=== PATIENT | male | born 1990 | race Caucasian/White ===

== ENCOUNTER 2020-10-20 22:22 | Emergency (ER) | payer OTHER ==
[~2020-10-20] VITALS: Ht 185.4 cm; Wt 90.9 kg
--- NOTE | 2020-10-20 22:30 | PHYS DOC ---
Past History Smoking: Cigarettes Alcohol Use: Rarely Drug Use: Other General Adult HPI: HPI: ".. I don't know.. what happened...I did a pinch of K -2.... I guess .. I went out...".. " I am fine now...." Patient is a 30 year old male [facility] prisoner who presents with above hx and complaints of syncope after doing a "pinch of K 2". Patient has states he has completed a 5-year federal sentence for drug sales. Patient states she has a 2- month stay at [facility], before completing his symptoms. Patient denies any previous cardiac history. Patient denies any previous history of seizures. Patient does have a history of polysubstance abuse before going to [facility]. Patient states he is not particularly high right now. Patient denies any pain. No recent travel outside the [place] area. No specific ill ill contacts. No history of trauma. Patient denies any chronic medical issues. Review of Systems: Review of Systems: Constitutional: Denies fever or chills Eyes: Denies change in visual acuity HENT: Denies nasal congestion or sore throat Respiratory: Denies cough or shortness of breath Cardiovascular: Denies chest pain or edema . Complaints of syncope after doing a pinch K 2 GI: Denies abdominal pain, nausea, vomiting, bloody stools or diarrhea : Denies dysuria Musculoskeletal: Denies back pain or joint pain Integument: Denies rash Neurologic: Denies headache, focal weakness or sensory changes Endocrine: Denies polyuria or polydipsia Lymphatic: Denies swollen glands Psychiatric: Denies depression or anxiety Family History: Family History: Noncontributory to presentation Current Medications: Current Meds: See nursing for home meds Allergies: Allergies: No known drug allergies Physical Exam: PE: Constitutional: Well developed, well nourished, no acute distress, appears mildly intoxicated on unknown substance. HENT: Normocephalic, atraumatic, bilateral external ears normal, oropharynx moist, no oral exudates, nose normal. [] Eyes: PERRLA, EOMI, conjunctiva normal, no discharge. [] Neck: Normal range of motion, no tenderness, supple, no stridor. [] Cardiovascular:Heart rate regular rhythm, no murmur [] Lungs & Thorax: Bilateral breath sounds equal apex with few scattered wheezes auscultation [] Abdomen: Bowel sounds normal, soft, no tenderness, no masses, no pulsatile masses. [] Skin: Warm, dry, no erythema, no rash. [] Back: No tenderness, no CVA tenderness. [] Extremities: No tenderness, no cyanosis, no clubbing, ROM intact, no edema. [] Neurologic: Alert and oriented X 3, normal motor function, normal sensory function, no focal deficits noted. [] DTRs +2 patellar and brachial. [employer] equal. No drift. Psychologic: Affect normal, judgement normal, mood normal. [] EKG: EKG: My interpretation of EKG shows a sinus rhythm at 64 bpm. There is a right bundle branch block. But no findings acute STEMI of contralateral changes. Radiology/Procedures: Radiology/Procedures: IMAGING REPORT Signed PATIENT: KAMRAN RIVERA: [id number] : 1990 LOCATION: ER AGE: 30 SEX: M EXAM STATUS: REG ER ORD. PHYSICIAN: AMANDEEP LOPEZ MD REASON: syncope after K -2 PROCEDURE: PORTABLE CHEST 1V PORTABLE CHEST 1V INDICATION: Reason: syncope after K -2 / Spl. Instructions: / History: . COMPARISON STUDY: None. FINDINGS: Lungs: Normal lung volume. No pulmonary mass or consolidation. The tracheobronchial tree and hilar structures are normal. Pleura: No pleural effusion or pneumothorax. Heart and Mediastinum: The cardiomediastinal silhouette is normal. The great vessels of the thorax are normal. IMPRESSION: No consolidation. Electronically signed by: Rakan Escobar MD (10/20/2020 11:25 PM) [facility] DICTATED AND SIGNED BY: RAKAN ESCOBAR MD DATE: 10/20/20 4018 CC: AMANDEEP LOPEZ MD; PCP,UNKNOWN ~MTH0 0 [][address] [address] IMAGING REPORT Signed PATIENT: KAMRAN RIVERA: [id number] : 1990 LOCATION: ER AGE: 30 SEX: M EXAM STATUS: REG ER ORD. PHYSICIAN: AMANDEEP LOPEZ MD REASON: syncope after K -2 PROCEDURE: PORTABLE CHEST 1V PORTABLE CHEST 1V INDICATION: Reason: syncope after K -2 / Spl. Instructions: / History: . COMPARISON STUDY: None. FINDINGS: Lungs: Normal lung volume. No pulmonary mass or consolidation. The tracheobronchial tree and hilar structures are normal. Pleura: No pleural effusion or pneumothorax. Heart and Mediastinum: The cardiomediastinal silhouette is normal. The great vessels of the thorax are normal. IMPRESSION: No consolidation. Electronically signed by: Rakan Escobar MD (10/20/2020 11:25 PM) [facility] DICTATED AND SIGNED BY: RAKAN ESCOBAR MD DATE: 10/20/202324 CC: AMANDEEP LOPEZ MD; PCP,UNKNOWN ~MTH0 0 Heart Score: HEART Score for Chest Pain: HEART Score for Chest Pain Response (Comments) Value History Slighlty/Non-Suspicious 0 ECG Normal 0 Age < 45 0 Risk Factors No Risk Factors 0 Troponin < Normal Limit 0 Total 0 Risk Factors: Risk Factors: DM, Current or recent (<one month) smoker, HTN, HLP, family history of CAD, obesity. Risk Scores: Score 0 - 3: 2.5% MACE over next 6 weeks - Discharge Home Score 4 - 6: 20.3% MACE over next 6 weeks - Admit for Clinical Observation Score 7 - 10: 72.7% MACE over next 6 weeks - Early Invasive Strategies Course & Med Decision Making: Course & Med Decision Making Pertinent Labs and Imaging studies reviewed. (See chart for details) Patient encouraged use of unknown drug or use of K2. Patient follow-up primary care. Patient return if any concerns. Patient's initial apparent intoxication is now resolved at time of discharge. Impression; 1. Syncope post K 2 use. 2. Mental Status Change [] Dragon Disclaimer: Dragon Disclaimer: This electronic medical record was generated, in whole or in part, using a voice recognition dictation system. Dragon Disclaimer This chart was dictated in whole or in part using Voice Recognition software in a busy, high-work load, and often noisy Emergency Department environment. It may contain unintended and wholly unrecognized errors or omissions. AMANDEEP LOPEZ MD Oct 20, 2020 22:30
--- NOTE | 2020-10-20 22:50 | EKG ---
[facility] ED [facility] [address] [place] [id number] Test Date: 2020-10-20 Test Time: 22:45:53 Pat Name: UMER RIVERA Department: Room: Gender: M Building Inspector: ERNESTO : 1990 Requested By: AMANDEEP LOPEZ Order Number: [id number] Reading MD: Measurements Intervals [place] Rate: 64 P: 54 [place]: 164 QRS: 59 QRSD: 94 T: 31 QT: 402 QTc: 414 Interpretive Statements SINUS RHYTHM INCOMPLETE RIGHT BUNDLE BRANCH BLOCK OTHERWISE NORMAL ECG RI6.02 No previous ECG available for comparison
[2020-10-20] MEDS ORDERED: IV RINGERS SOLUTION,LACTATED 1,000 ML IV SCH (23:00)
[2020-10-20 23:10] LABS: BASO # 0.1 x10^3/uL (0.0-0.2); BASO % 1 % (0-3); EOS # 0.1 x10^3/uL (0.0-0.7); EOS % 2 % (0-3); HEMATOCRIT 42.3 % (39.0-53.0); HEMOGLOBIN 14.2 g/dL (13.0-17.5); LYMPH # 2.8 x10^3/uL (1.0-4.8); LYMPH % 33 % (24-48); MEAN CORPUSCULAR HEMOGLOBIN 31 pg (25-35); MEAN CORPUSCULAR HGB CONC 34 g/dL (31-37); MEAN CORPUSCULAR VOLUME 93 fL (79-100); MONO # 0.6 x10^3/uL (0.0-1.1); MONO % 7 % (0-9); NEUT % 58 % (31-73); PLATELET COUNT 203 x10^3/uL (140-400); RED BLOOD COUNT 4.58 x10^6/uL (4.30-5.70); RED CELL DISTRIBUTION WIDTH 13.7 % (11.5-14.5); WHITE BLOOD COUNT 8.6 x10^3/uL (4.0-11.0)
[2020-10-20 23:18] LABS: GFR 88.3; POTASSIUM 4.1 mmol/L (3.5-5.1)
--- NOTE | 2020-10-20 23:27 | RAD ---
PORTABLE CHEST 1V INDICATION: Reason: syncope after K -2 / Spl. Instructions: / History: . COMPARISON STUDY: None. FINDINGS: Lungs: Normal lung volume. No pulmonary mass or consolidation. The tracheobronchial tree and hilar structures are normal. Pleura: No pleural effusion or pneumothorax. Heart and Mediastinum: The cardiomediastinal silhouette is normal. The great vessels of the thorax are normal. IMPRESSION: No consolidation. Electronically signed by: Ruddy Cardona MD (10/20/2020 11:25 PM) [facility]
[2020-10-20 23:30] LABS: ALBUMIN 3.9 g/dL (3.4-5.0); DIRECT BILIRUBIN 0.1 mg/dL (0.0-0.2); MAGNESIUM 2.2 mg/dL (1.8-2.4); TOTAL BILIRUBIN 0.2 mg/dL (0.2-1.0); TOTAL PROTEIN 7.7 g/dL (6.4-8.2)
[2020-10-21 00:44] LABS: CLARITY,URINE CLEAR; COLOR,URINE YELLOW
[2020-10-21 00:45] LABS: BACTERIA,URINE 0 /HPF (0-FEW); BILIRUBIN,URINE NEG (NEG); GLUCOSE,URINE NEG (NEG); NITRITE,URINE NEG (NEG); RBC,URINE 0 /HPF (0-2); UROBILINOGEN,URINE 0.2 mg/dL (0.2 mg/dL); WBC,URINE OCC /HPF (0-4)
[2020-10-21 00:49] LABS: BARBITURATES NEG (NEG); BENZODIAZEPINES NEG (NEG); CANNABINOIDS NEG (NEG); COCAINE NEG (NEG); METHADONE NEG (NEG); OPIATES NEG (NEG); PHENCYCLIDINE NEG (NEG)
[2020-10-21 00:51] VITALS: BP 117/82
[2020-10-21 01:03] LABS: AMPHETAMINE/METHAMPHETAMINE NEG (NEG)
[2020-10-21 12:19] LABS: THYROID STIM HORMONE (TSH) 1.695 uIU/mL (0.358-3.740)
== END 2020-10-21 02:08 | disposition home or self-care (01) ==
LOC: ER 22:22
DX: R55 Syncope and collapse (principal); R41.82 Altered mental status, unspecified; F17.210 Nicotine dependence, cigarettes, uncomplicated; F12.10 Cannabis abuse, uncomplicated
CPT/HCPCS: 36415; 71045; 80048; 80061; 80076; 80307; 81001; 82550; 83735; 83880; 84443; 84484; 85025; 85379; 85610; 85730; 93005; 96360; 99285; J7120